=== PATIENT | female | born 1935 | race Caucasian/White ===

== ENCOUNTER 2019-07-21 09:41 | Emergency (ER) | payer OTHER ==
[~2019-07-21] VITALS: Ht 160 cm; Wt 63.5 kg
[2019-07-21 10:21] VITALS: BP_SYST 140
--- NOTE | 2019-07-21 10:31 | NUR ---
Patient to ER bed 05 to gown for evaluation. Side rails up.
--- NOTE | 2019-07-21 10:32 | NUR ---
Patient arrived in the ED c/o right shoulder pain post mechanical fall today. Denied any chest pain or shortness of breath. Denied any fevers or chills. Patient is alert and oriented x3, respirations even and unlabored, speaking in full sentences and ambulating with a steady gait. VSS, pain level 7/10. Informed of the approximate wait time. Instructed to notify ED staff for any changes in condition or worsening of symptoms while waiting to be seen by the provider. Patient verbalized understanding.
--- NOTE | 2019-07-21 10:34 | NUR ---
ER Dr. Turk at bedside examining patient.
--- NOTE | 2019-07-21 10:42 | NUR ---
X-ray tech at bedside as ordered by Dr. Turk. Patient tolerated the procedure well.
--- NOTE | 2019-07-21 11:28 | NUR ---
ER Dr. Turk at bedside re-examining patient.
[2019-07-21] MEDS ORDERED: MORPHINE 2 MG/ML INJ. SYRINGE IM ONE (11:30)
--- NOTE | 2019-07-21 11:40 | NUR ---
Right arm sling provided as ordered by Dr. Turk. DME fitted and instructions on how to use provided. Patient verbalized understanding.
[2019-07-21 11:45] VITALS: BP_SYST 126
--- NOTE | 2019-07-21 11:45 | NUR ---
Patient given written and verbal discharge instructions and verbalizes understanding. ER MD discussed with patient the results and treatment provided. Patient in stable condition. ID arm band removed. Rx of Casey and Ibuprofen given. Patient educated on pain management and to follow up with PMD. Pain Scale 0/10. Opportunity for questions provided and answered. Medication side effect fact sheet provided.
== END 2019-07-21 11:45 | disposition home or self-care (01) ==
LOC: SED 09:41
DX: S42.031A Displaced fracture of lateral end of right clavicle, initial encounter for closed fracture (principal); S63.617A Unspecified sprain of left little finger, initial encounter; I10 Essential (primary) hypertension; W01.198A Fall on same level from slipping, tripping and stumbling with subsequent striking against other object, initial encounter; Y93.89 Activity, other specified; Y92.89 Other specified places as the place of occurrence of the external cause; Y99.8 Other external cause status
CPT/HCPCS: 73030; 99283

== ENCOUNTER 2021-12-17 18:07 | Inpatient (IN) | payer OTHER ==
[~2021-12-17] VITALS: Ht 160 cm; Wt 59.6 kg
[2021-12-17] MEDS ORDERED: ONDANSETRON 4 MG ODT TAB PO ONE (18:15)
[2021-12-17 18:16] VITALS: BP_SYST 100
[2021-12-17] MEDS ORDERED: ONDANSETRON HCL 4 MG/2 ML VIAL ONE (18:16)
[2021-12-17] MEDS ORDERED: ONDANSETRON HCL 4 MG/2 ML VIAL IVP ONE (18:45)
[2021-12-17 19:06] LABS: BASOPHILS % (AUTO) 0.4 % (0.0-2.0); EOSINOPHILS % (AUTO) 0.6 % (0.0-4.0); HEMATOCRIT 42.2 % (36-48); HEMOGLOBIN 14.2 g/dL (12.0-16.0); LYMPHOCYTES # (AUTO) 1.3 K/uL (1.0-5.5); LYMPHOCYTES % (AUTO) 24.1 % (20.5-51.5); MEAN CORPUSCULAR HEMOGLOBIN 29 pg (27-31); MEAN CORPUSCULAR HGB CONC 34 % (32-36); MEAN CORPUSCULAR VOLUME 87 fL (79.0-98.0); MONOCYTES # (AUTO) 0.4 K/uL (0.0-1.0); MONOCYTES % (AUTO) 7.3 % (1.7-9.3); NEUTROPHILS # (AUTO) 3.7 K/uL (1.8-7.7); NEUTROPHILS % (AUTO) 67.6 % (40.0-70.0); PLATELET COUNT (AUTO) 142 K/uL (130-430); RED BLOOD CELL COUNT(AUTO) 4.85 MIL/uL (4.2-6.2); RED CELL DISTRIBUTION WIDTH 14.5 % (9.0-15.0); WHITE BLOOD COUNT (AUTO) 5.5 K/uL (4.8-10.8)
[2021-12-17 19:19] LABS: ANION GAP 7 (5-15); CALCIUM 9.1 mg/dL (8.4-11.0); CHLORIDE 100 mmol/L (98-107); CREATININE 0.87 mg/dL (0.55-1.30); GLUCOSE 139 mg/dL (70-99); POTASSIUM 3.8 mmol/L (3.5-5.1); SODIUM SERUM 136 mmol/L (136-145); UREA NITROGEN, BLOOD 21 mg/dL (8-21)
[2021-12-17 19:30] LABS: ALBUMIN 3.7 g/dL (3.4-4.8); ASPARTATE AMINOTRANSFERASE 24 U/L (10-37); TOTAL BILIRUBIN 0.8 mg/dL (0.0-1.0)
[2021-12-17 19:40] LABS: ALANINE AMINOTRANSFERASE 7 U/L (12-78)
[2021-12-17] MEDS ORDERED: ACETAMINOPHEN 325 MG TABLET PO PRN (21:00)
[2021-12-17] MEDS ORDERED: HYDROcodone/ACETAMIN 5-325 MG TAB (NORCO/ VICODIN) PO PRN (21:00)
[2021-12-17] MEDS ORDERED: ONDANSETRON HCL 4 MG/2 ML VIAL IVP PRN (21:00)
[2021-12-17] MEDS ORDERED: hydrALAZINE HCL 20 MG/ML VIAL IVP SCH (21:15)
[2021-12-17] MEDS ORDERED: SPIR25TA6 PO (21:19)
[2021-12-17] MEDS ORDERED: ASPI-1393 PO (21:19)
[2021-12-17] MEDS ORDERED: CARB-290 PO (21:19)
[2021-12-17] MEDS ORDERED: CARV12.548 PO (21:19)
[2021-12-17] MEDS ORDERED: MELA5TAB12 PO (21:19)
[2021-12-17] MEDS ORDERED: CEL20 PO (21:19)
[2021-12-17] MEDS ORDERED: BUSP5TAB3 PO (21:19)
[2021-12-17] MEDS ORDERED: ALPRAZolam 0.25 MG TABLET PO ONE (22:00)
[2021-12-17 23:00] VITALS: BP_SYST 155
[2021-12-18 07:02] LABS: BASOPHILS % (AUTO) 0.5 % (0.0-2.0); EOSINOPHILS % (AUTO) 0.4 % (0.0-4.0); HEMATOCRIT 41.6 % (36-48); HEMOGLOBIN 14.1 g/dL (12.0-16.0); LYMPHOCYTES # (AUTO) 1.7 K/uL (1.0-5.5); LYMPHOCYTES % (AUTO) 29.2 % (20.5-51.5); MEAN CORPUSCULAR HEMOGLOBIN 29 pg (27-31); MEAN CORPUSCULAR HGB CONC 34 % (32-36); MEAN CORPUSCULAR VOLUME 87 fL (79.0-98.0); MONOCYTES # (AUTO) 0.4 K/uL (0.0-1.0); MONOCYTES % (AUTO) 7.2 % (1.7-9.3); NEUTROPHILS # (AUTO) 3.6 K/uL (1.8-7.7); NEUTROPHILS % (AUTO) 62.7 % (40.0-70.0); PLATELET COUNT (AUTO) 150 K/uL (130-430); RED BLOOD CELL COUNT(AUTO) 4.81 MIL/uL (4.2-6.2); RED CELL DISTRIBUTION WIDTH 14.5 % (9.0-15.0); WHITE BLOOD COUNT (AUTO) 5.7 K/uL (4.8-10.8)
[2021-12-18 07:52] LABS: ANION GAP 5 (5-15); CALCIUM 8.9 mg/dL (8.4-11.0); CHLORIDE 100 mmol/L (98-107); GLUCOSE 93 mg/dL (70-99); POTASSIUM 3.8 mmol/L (3.5-5.1); SODIUM SERUM 135 mmol/L (136-145); UREA NITROGEN, BLOOD 18 mg/dL (8-21)
[2021-12-18 08:00] VITALS: BP_SYST 127
[2021-12-18] MEDS: SPIRONOLACTONE 25 MG TABLET (ALDACTONE) PO SCH (08:54)
[2021-12-18] MEDS: busPIRone HCL 5 MG TABLET PO SCH ×2 (08:55→21:48)
[2021-12-18] MEDS: CITALOPRAM HYDROBROMIDE 20 MG TABLET PO SCH (08:55)
[2021-12-18] MEDS: ASPIRIN 81 MG TABLET(ECOTRIN) PO SCH (08:55)
[2021-12-18] MEDS: CARVEDILOL 12.5 MG TABLET (COREG) PO SCH ×2 (08:56→21:49)
[2021-12-18] MEDS: CARBIDOPA/LEVODOPA 25/100 MG TABLET PO SCH ×3 (08:56→21:48)
[2021-12-18] MEDS ORDERED: ASPIRIN 81 MG TAB.CHEW PO SCH (09:00)
[2021-12-18 12:00] VITALS: BP_SYST 127; BP_SYST 128; BP_SYST 130
[2021-12-18 16:00] VITALS: BP_SYST 128
[2021-12-18 20:00] VITALS: BP_SYST 139
[2021-12-18] MEDS ORDERED: TEMAZEPAM 7.5 MG CAPSULE PO PRN (20:00)
[2021-12-19 06:04] LABS: BASOPHILS % (AUTO) 0.6 % (0.0-2.0); EOSINOPHILS # (AUTO) 0.1 K/uL (0.0-0.4); EOSINOPHILS % (AUTO) 1.6 % (0.0-4.0); HEMOGLOBIN 13.8 g/dL (12.0-16.0); LYMPHOCYTES # (AUTO) 2.1 K/uL (1.0-5.5); LYMPHOCYTES % (AUTO) 41.2 % (20.5-51.5); MEAN CORPUSCULAR HEMOGLOBIN 29 pg (27-31); MEAN CORPUSCULAR HGB CONC 34 % (32-36); MEAN CORPUSCULAR VOLUME 87 fL (79.0-98.0); MONOCYTES # (AUTO) 0.5 K/uL (0.0-1.0); MONOCYTES % (AUTO) 9.3 % (1.7-9.3); NEUTROPHILS # (AUTO) 2.4 K/uL (1.8-7.7); NEUTROPHILS % (AUTO) 47.3 % (40.0-70.0); PLATELET COUNT (AUTO) 142 K/uL (130-430); RED BLOOD CELL COUNT(AUTO) 4.72 MIL/uL (4.2-6.2); RED CELL DISTRIBUTION WIDTH 14.6 % (9.0-15.0)
[2021-12-19 08:00] VITALS: BP_SYST 146
[2021-12-19 08:43] LABS: ANION GAP 11 (5-15); CALCIUM 9.6 mg/dL (8.4-11.0); CHLORIDE 100 mmol/L (98-107); CREATININE 0.81 mg/dL (0.55-1.30); GLUCOSE 105 mg/dL (70-99); POTASSIUM 3.8 mmol/L (3.5-5.1); SODIUM SERUM 137 mmol/L (136-145); UREA NITROGEN, BLOOD 34 mg/dL (8-21)
[2021-12-19] MEDS: CARBIDOPA/LEVODOPA 25/100 MG TABLET PO SCH ×3 (09:13→20:29)
[2021-12-19] MEDS: busPIRone HCL 5 MG TABLET PO SCH ×2 (09:13→20:29)
[2021-12-19] MEDS: CITALOPRAM HYDROBROMIDE 20 MG TABLET PO SCH (09:14)
[2021-12-19] MEDS: CARVEDILOL 12.5 MG TABLET (COREG) PO SCH ×2 (09:15→20:30)
[2021-12-19] MEDS: SPIRONOLACTONE 25 MG TABLET (ALDACTONE) PO SCH (09:15)
[2021-12-19] MEDS: ASPIRIN 81 MG TABLET(ECOTRIN) PO SCH (09:15)
[2021-12-19 12:00] VITALS: BP_SYST 141
[2021-12-19 16:00] VITALS: BP_SYST 139
[2021-12-19 20:00] VITALS: BP_SYST 152
[2021-12-20] VITALS: BP_SYST 134
[2021-12-20 04:20] LABS: BILIRUBIN,URINE NEGATIVE (NEGATIVE); CLARITY/URINE CLEAR (CLEAR); COLOR,URINE YELLOW (YELLOW); GLUCOSE,URINE NEGATIVE (NEGATIVE); KETONES,URINE NEGATIVE (NEGATIVE); LEUKOCYTE ESTERASE ,URINE NEGATIVE (NEGATIVE); NITRITE, URINE NEGATIVE (NEGATIVE); PH,URINE 5.5 (5.0-8.0); PROTEIN URINE NEGATIVE (NEGATIVE); UROBILINOGEN,URINE 0.2 (0.2-1.0)
[2021-12-20 04:29] LABS: BLOOD, URINE TRACE (NEGATIVE)
[2021-12-20 04:39] LABS: BACTERIA,URINE RARE /HPF (None Seen); RBC,URINE 0-3 /HPF (0-3); WBC,URINE 0-3 /HPF (0-3)
[2021-12-20 06:39] LABS: BASOPHILS % (AUTO) 0.6 % (0.0-2.0); EOSINOPHILS # (AUTO) 0.1 K/uL (0.0-0.4); EOSINOPHILS % (AUTO) 2.1 % (0.0-4.0); HEMATOCRIT 41.3 % (36-48); HEMOGLOBIN 14.1 g/dL (12.0-16.0); LYMPHOCYTES # (AUTO) 1.4 K/uL (1.0-5.5); LYMPHOCYTES % (AUTO) 29.8 % (20.5-51.5); MEAN CORPUSCULAR HEMOGLOBIN 30 pg (27-31); MEAN CORPUSCULAR HGB CONC 34 % (32-36); MEAN CORPUSCULAR VOLUME 87 fL (79.0-98.0); MONOCYTES # (AUTO) 0.5 K/uL (0.0-1.0); MONOCYTES % (AUTO) 10.8 % (1.7-9.3); NEUTROPHILS # (AUTO) 2.7 K/uL (1.8-7.7); NEUTROPHILS % (AUTO) 56.7 % (40.0-70.0); PLATELET COUNT (AUTO) 140 K/uL (130-430); RED BLOOD CELL COUNT(AUTO) 4.78 MIL/uL (4.2-6.2); RED CELL DISTRIBUTION WIDTH 14.6 % (9.0-15.0); WHITE BLOOD COUNT (AUTO) 4.8 K/uL (4.8-10.8)
[2021-12-20 07:41] LABS: ANION GAP 7 (5-15); CALCIUM 9.5 mg/dL (8.4-11.0); CHLORIDE 101 mmol/L (98-107); CREATININE 0.81 mg/dL (0.55-1.30); GLUCOSE 93 mg/dL (70-99); POTASSIUM 3.7 mmol/L (3.5-5.1); SODIUM SERUM 137 mmol/L (136-145); UREA NITROGEN, BLOOD 25 mg/dL (8-21)
[2021-12-20] MEDS: CITALOPRAM HYDROBROMIDE 20 MG TABLET PO SCH (09:44)
[2021-12-20] MEDS: SPIRONOLACTONE 25 MG TABLET (ALDACTONE) PO SCH (09:44)
[2021-12-20] MEDS: busPIRone HCL 5 MG TABLET PO SCH (09:44)
[2021-12-20] MEDS: CARVEDILOL 12.5 MG TABLET (COREG) PO SCH (09:44)
[2021-12-20] MEDS: CARBIDOPA/LEVODOPA 25/100 MG TABLET PO SCH (09:45)
[2021-12-20] MEDS: ASPIRIN 81 MG TABLET(ECOTRIN) PO SCH (09:45)
[2021-12-20 10:23] VITALS: BP_SYST 136
[2021-12-20 11:28] VITALS: BP_SYST 136
[2021-12-20 12:06] VITALS: BP_SYST 151
== END 2021-12-20 12:55 | disposition home or self-care (01) | DRG 307 ==
LOC: SED 18:07 → STU 20:59
PROVIDERS: ADMIT Student in an Organized Health Care Education/Training Program; ATTEND Student in an Organized Health Care Education/Training Program
PROC: 4A10X4Z Monitoring of Central Nervous Electrical Activity, External Approach (ICD-10-PCS; principal; 2021-12-17)
DX: I35.0 Nonrheumatic aortic (valve) stenosis (principal); I50.32 Chronic diastolic (congestive) heart failure; G20 Parkinson's disease; K52.9 Noninfective gastroenteritis and colitis, unspecified; G90.8 Other disorders of autonomic nervous system; I11.0 Hypertensive heart disease with heart failure; Z20.822 Contact with and (suspected) exposure to COVID-19; Z79.82 Long term (current) use of aspirin; Z79.899 Other long term (current) drug therapy
CPT/HCPCS: 36415; 70450-TC; 71045; 76376; 80048; 80053; 81000; 82550; 83605; 83880; 84484; 85025; 87081; 93005; 93306; 93880; 95816; 96374; 97112-GP; 97116-GP; 99285; G0378; J2405

== ENCOUNTER 2022-05-04 10:03 | Emergency (ER) | payer OTHER ==
[~2022-05-04] VITALS: Ht 160 cm; Wt 59.0 kg
[~2022-05-04 10:03] MED LIST: ASPI-1393 PO; BUSP5TAB3 PO; CARB-290 PO; CARV12.548 PO; CEL20 PO; MELA5TAB12 PO
[2022-05-04 10:06] VITALS: BP_SYST 150
--- NOTE | 2022-05-04 10:10 | NUR ---
Placed in room 03 . Placed on radiography technician, blood pressure machine and pulse oximeter. To gown for exam. Side rails up. Report given to KENDELL CHAVEZ.
--- NOTE | 2022-05-04 10:15 | NUR ---
Patient arrived to ED 3 for c/o "throwing up after having breakfast." Patient said that she lives in assisted living and 911 was called. Patient denies falling, hitting head, or having other injuries. Patient denies having diabetes and has history of heart surgery a "few years ago." Patient denies pain at the moment. Will continue to monitor.
[2022-05-04] MEDS ORDERED: ONDANSETRON 4 MG ODT TAB PO ONE (10:30)
--- NOTE | 2022-05-04 11:14 | NUR ---
covid swab collected at bedside, sent to lab
[2022-05-04 11:16] LABS: BASOPHILS # (AUTO) 0.1 K/uL (0.0-0.2); BASOPHILS % (AUTO) 1.9 % (0.0-2.0); EOSINOPHILS % (AUTO) 0.3 % (0.0-4.0); HEMATOCRIT 38.4 % (36-48); HEMOGLOBIN 13.2 g/dL (12.0-16.0); LYMPHOCYTES # (AUTO) 0.8 K/uL (1.0-5.5); LYMPHOCYTES % (AUTO) 9.6 % (20.5-51.5); MEAN CORPUSCULAR HEMOGLOBIN 30 pg (27-31); MEAN CORPUSCULAR HGB CONC 34 % (32-36); MEAN CORPUSCULAR VOLUME 89 fL (79.0-98.0); MONOCYTES # (AUTO) 0.7 K/uL (0.0-1.0); NEUTROPHILS # (AUTO) 6.3 K/uL (1.8-7.7); NEUTROPHILS % (AUTO) 79.2 % (40.0-70.0); PLATELET COUNT (AUTO) 133 K/uL (130-430); RED BLOOD CELL COUNT(AUTO) 4.33 MIL/uL (4.2-6.2); RED CELL DISTRIBUTION WIDTH 13.7 % (9.0-15.0)
[2022-05-04 11:42] LABS: ANION GAP 6 (5-15); CALCIUM 9.4 mg/dL (8.4-11.0); CHLORIDE 104 mmol/L (98-107); CREATININE 0.79 mg/dL (0.55-1.30); GLUCOSE 121 mg/dL (70-99); UREA NITROGEN, BLOOD 30 mg/dL (8-21)
[2022-05-04 11:46] LABS: ALBUMIN 3.7 g/dL (3.4-4.8); ASPARTATE AMINOTRANSFERASE 20 U/L (10-37); LIPASE 47 U/L (73-393)
[2022-05-04 11:59] LABS: ALANINE AMINOTRANSFERASE 4 U/L (12-78)
[2022-05-04 12:11] LABS: BILIRUBIN,URINE NEGATIVE (NEGATIVE); COLOR,URINE YELLOW (YELLOW); GLUCOSE,URINE NEGATIVE (NEGATIVE); KETONES,URINE TRACE (NEGATIVE); LEUKOCYTE ESTERASE ,URINE 1+ (NEGATIVE); NITRITE, URINE NEGATIVE (NEGATIVE); PH,URINE 6.5 (5.0-8.0); PROTEIN URINE TRACE (NEGATIVE)
[2022-05-04 12:15] LABS: BLOOD, URINE TRACE (NEGATIVE); CLARITY/URINE SLIGHTLY HAZY (CLEAR)
[2022-05-04 12:17] LABS: BACTERIA,URINE MODERATE /HPF (None Seen); RBC,URINE 0-3 /HPF (0-3)
[2022-05-04] MEDS ORDERED: cefTRIAXone 1 GM in D5W 50 ML IV ONE (12:45)
[2022-05-04] MEDS ORDERED: cefTRIAXone 1 GM VIAL ONE (12:55)
--- NOTE | 2022-05-04 13:42 | NUR ---
Dr. Akers came to talk to patient's family about status of patient. Family's wishes is to have patient discharged after antibiotics. Patient made aware of situation.
[2022-05-04] MEDS ORDERED: CEPH-548 PO ×2 (13:46→14:03)
--- NOTE | 2022-05-04 14:50 | NUR ---
Patient given written and verbal discharge instructions and verbalizes understanding. ER MD discussed with patient the results and treatment provided. Patient in stable condition. ID arm band removed. IV catheter removed intact and dressing applied, no active bleeding. Rx of KEFLEX given. Patient educated on pain management and to follow up with PMD. Pain Scale . Opportunity for questions provided and answered. Medication side effect fact sheet provided. Patient ok with going home. Ambulatory with steady gait to wheelchair and vehicle.
[2022-05-04 14:51] VITALS: BP_SYST 136
== END 2022-05-04 14:50 | disposition home or self-care (01) ==
LOC: SED 10:03
DX: R55 Syncope and collapse (principal); N39.0 Urinary tract infection, site not specified; R11.2 Nausea with vomiting, unspecified; I10 Essential (primary) hypertension; Z79.899 Other long term (current) drug therapy; Z20.822 Contact with and (suspected) exposure to COVID-19
CPT/HCPCS: 99285; 96365; 70450; 71045; 87426; 80053; 81000; 83880; 83690; 83735; 84100; 85025; 87086; 84484; 36415; 93005; 76376; Q0162; J0696